=== PATIENT | male | born 2000 | race Caucasian/White ===

== ENCOUNTER 2020-07-19 17:22 | Emergency (ER) | payer MEDICAID ==
[~2020-07-19] VITALS: Ht 190.5 cm; Wt 99.8 kg
[2020-07-19 17:32] VITALS: BP 109/56; Ht 190.5 cm; Wt 99.8 kg
== END 2020-07-19 18:25 | disposition home or self-care (01) ==
LOC: ED 17:22
DX: T78.1XXA Other adverse food reactions, not elsewhere classified, initial encounter (principal); F17.210 Nicotine dependence, cigarettes, uncomplicated; X58.XXXA Exposure to other specified factors, initial encounter
CPT/HCPCS: 99406